=== PATIENT | female | born 1980 | race Caucasian/White ===

== ENCOUNTER → 2020-10-28 | Outpatient (CLI) | payer BC ==
[~2020-10-28] VITALS: Ht 167.6 cm; Wt 81.6 kg
== END ==
LOC: OPSV 12:19
DX: C81.08 Nodular lymphocyte predominant Hodgkin lymphoma, lymph nodes of multiple sites (principal)
CPT/HCPCS: 96523; J1642

== ENCOUNTER → 2020-12-02 | Outpatient (CLI) | payer BC ==
[~2020-12-02] VITALS: Ht 167.6 cm; Wt 81.6 kg
== END ==
LOC: OPSV 11:59
DX: Z45.2 Encounter for adjustment and management of vascular access device (principal); C81.08 Nodular lymphocyte predominant Hodgkin lymphoma, lymph nodes of multiple sites
CPT/HCPCS: 96523; J1642

== ENCOUNTER → 2021-01-26 | Outpatient (CLI) | payer BC ==
[~2021-01-26] VITALS: Ht 167.6 cm; Wt 81.6 kg
== END ==
LOC: OPSV 09:00
DX: Z45.2 Encounter for adjustment and management of vascular access device (principal); C81.08 Nodular lymphocyte predominant Hodgkin lymphoma, lymph nodes of multiple sites
CPT/HCPCS: 96523; J1642

== ENCOUNTER → 2021-02-23 | Outpatient (CLI) | payer BC | LOC: OPSV 14:22 | DX: C81.08 Nodular lymphocyte predominant Hodgkin lymphoma, lymph nodes of multiple sites (principal) | CPT/HCPCS: 96523; J1642 ==